=== PATIENT | female | born 1960 | race Caucasian/White ===

== ENCOUNTER 2025-10-26 05:35 | Day surgery (SDC) | payer MEDICARE ==
[2025-10-25 14:14] LABS: MEAN PLATELET VOLUME 8.6 FL (7.4-10.4); RED CELL DISTRIBUTION WIDTH 14.3 % (11.5-14.5)
[2025-10-25 14:24] LABS: CREATININE 1.01 MG/DL (0.40-0.90); TOTAL CARBON DIOXIDE 30.2 MMOL/L (24-32); eGFR 55 ML/MIN
[2025-10-25 14:27] LABS: INR 1.1 INR
[~2025-10-26] VITALS: Ht 154.9 cm; Wt 82.7 kg
[2025-10-26] VITALS (8 sets, daily range): BP systolic 96–114; BP diastolic 42–76; PULSE 43–65; RESP 12–19; TEMP 98.1; O2SAT 90–96
[2025-10-26] MEDS ORDERED: morphine 10mg/ml inj. IV ONE (06:20)
[2025-10-26] MEDS ORDERED: amiodarone 150mg/dext, iso-os 100 ML IV ONE (06:20)
[2025-10-26] MEDS ORDERED: atropine 0.1mg/ml 10ml syringe IV ONE (06:20)
[2025-10-26] MEDS ORDERED: MIDAZolam 1mg/ml 10ml vial IV ONE (06:20)
--- NOTE | 2025-10-26 06:24 | ELECTROCARDIOGRAPH REPORT ---
[facility] Test Date: 2025-10-26 Test Time: 06:23:14 Pat Name: RAQUEL SEARS Department: [facility] Patient ID: [facility]-[id number] Room: Gender: F Talcer: NARESH : 1960 Requested By: BROOKE BECKMAN Order Number: [id number] Reading MD: Dr. Lalita Adorno Measurements Intervals [place] Rate: 67 P: 0 ND: 0 QRS: 86 QRSD: 86 T: 23 QT: 438 QTc: 463 Interpretive Statements Atrial fibrillation Borderline right axis deviation Low voltage, extremity and precordial leads Electronically Signed On 10-26-2025 6:51:[address] Lalita Adorno Please click the below link to view image of tracing.
[2025-10-26] MEDS ORDERED: METO25TA6 PO (06:58)
[2025-10-26] MEDS ORDERED: FURO20TA4 PO (06:58)
[2025-10-26] MEDS ORDERED: AMIO200T76 PO (06:58)
[2025-10-26] MEDS ORDERED: APIX5TAB3 PO (06:58)
[2025-10-26] MEDS: normal saline 1000ml 1,000 ML IV SCH (07:14)
[2025-10-26] MEDS ORDERED: midazolam 1 mg/ML 2ml injection ONE ×2 (07:51→08:17)
[2025-10-26] MEDS ORDERED: amiodarone 50MG/ML inj IV ONE (07:51)
[2025-10-26] MEDS ORDERED: atropine 0.1mg/ml 10ml syringe ONE (07:52)
[2025-10-26] MEDS ORDERED: fentaNYL/PF 50MCG/1 ML 2ML syringe ONE (07:52)
--- NOTE | 2025-10-26 08:55 | ELECTROCARDIOGRAPH REPORT ---
[facility] Test Date: 2025-10-26 Test Time: 08:53:51 Pat Name: RAQUEL SEARS Department: [facility] Patient ID: [facility]-[id number] Room: Gender: F Risk Professional: : 1960 Requested By: BROOKE BECKMAN Order Number: [id number] Reading MD: Dr. Lalita Adorno Measurements Intervals [place] Rate: 44 P: 46 MI: 214 QRS: 34 QRSD: 86 T: 42 QT: 522 QTc: 447 Interpretive Statements Sinus bradycardia Low voltage, extremity leads Consider anterior infarct Electronically Signed On 10-26-2025 16:31:[address] Lalita Adorno Please click the below link to view image of tracing.
--- NOTE | 2025-10-26 08:56 | CARDIOLOGY REPORT ---
DATE OF SERVICE: 10/26/2025 DICTATING PHYSICIAN: AAMIR Medina MD ELECTRICAL CARDIOVERSION REPORT FAMILY DOCTOR: Dr. Shaan Bess at [facility]. CPHT: AAMIR Medina MD PROCEDURE PERFORMED: Electrical cardioversion. INDICATION: A 64-year-old postmenopausal female with ascending aortic aneurysm and status post aneurysmectomy by Dr. Nunez at [facility] with aortic valve replacement on 07/14/2025. Ejection fraction on 10/2025 is 65 with normally functioning aortic valve with ascending aortic aneurysm which measures 5.1. The patient has history of atrial fibrillation since TAVR 07/2025. She was on digoxin and Eliquis. Digoxin has been subsequently stopped and she was started on amiodarone and apixaban. Now, after discussing risks, benefits, and alternative options, the patient prefers to proceed with electrical cardioversion. She had a nonobstructive CAD and she also has underlying sick sinus syndrome. DESCRIPTION OF PROCEDURE: Anterior and posterior pads were used. Using biphasic electrical energy, 200 joules x 1, converted to normal sinus rhythm. The patient was a little bradycardic. Her metoprolol was decreased to 25 p.o. b.i.d. from 50 p.o. b.i.d. IMPRESSION: A 64-year-old female, status post surgical aortic valve replacement, was in atrial fibrillation, converted back to normal sinus rhythm. RECOMMENDATIONS: Continue amiodarone 200 mg once a day, apixaban 5 mg p.o. b.i.d., and decrease metoprolol to 25 p.o. b.i.d. Recommended event monitor. The patient appears to have underlying sick sinus syndrome. If she continues to have symptomatic bradycardia, the need for a pacemaker was discussed with the patient. AAMIR Medina MD TID: [id number] RECEIPT: [id number] TAPAN/SAVANNAH cc: Shaan Bess MD
== END 2025-10-26 09:45 | disposition home or self-care (01) ==
LOC: SSTAY O 05:35
PROVIDERS: ATTEND Internal Medicine Cardiovascular Disease
DX: I48.0 Paroxysmal atrial fibrillation (principal); I71.21 Aneurysm of the ascending aorta, without rupture; I25.10 Atherosclerotic heart disease of native coronary artery without angina pectoris; I35.0 Nonrheumatic aortic (valve) stenosis; I49.5 Sick sinus syndrome; I10 Essential (primary) hypertension; Z95.2 Presence of prosthetic heart valve; Z78.0 Asymptomatic menopausal state; Z98.84 Bariatric surgery status; Z98.890 Other specified postprocedural states; Z83.3 Family history of diabetes mellitus; Z80.9 Family history of malignant neoplasm, unspecified; Z82.49 Family history of ischemic heart disease and other diseases of the circulatory system; Z85.828 Personal history of other malignant neoplasm of skin
CPT/HCPCS: 36415; 80048; 85025; 85610; 92960; 93005; J0282; J2250; J3010; J7030; Q0163; 99152; J0461